=== PATIENT | female | born 1980 | race Caucasian/White ===

== ENCOUNTER 2018-03-27 22:20 | Inpatient (IN) ==
[2018-03-27] MEDS ORDERED: LORazepam 1 MG Tablet PO ONE (23:02)
[2018-03-27] MEDS ORDERED: levETIRAcetam 1000mg/100mL Inj 100 ML IV.SIG ONE (23:19)
--- NOTE | 2018-03-27 23:24 | ED ---
HPI General Chief complaint: Seizure Stated complaint: poss seizure/evac Time Seen by Provider: 03/27/18 22:31 Source: patient, old records reviewed and other (Staff) Mode of arrival: EMS History of Present Illness HPI narrative: Is a 37-year-old woman with cerebral palsy and history of seizures presents with recurrent seizures. She has had now total of 7 seizures today. By report she has not had a seizure in several years. Stopped her medications at the direction of Dr. Jennings, her neurologist, several months ago. Seen in the emergency department earlier today she had extensive workup including labs, imaging, CT head. She was restarted on her palms medications and was given a follow-up with Dr. Jennings in the next couple days. At home tonight, had multiple recurrent seizures including a grand mal seizure in several partial seizures. Socially, patient also little bit preoccupied with her third roommate, and is currently staying with the staff member employed through an agency hired by her family. Related Data Home Medications Medication Instructions Recorded Confirmed albuterol sulfate [ProAir HFA] 2 puff INHALATION Q4-6H PRN 03/27/18 03/27/18 lorazepam 0.5 mg PO TID 03/27/18 03/27/18 norgestimate-ethinyl estradiol 1 tab PO DAILY 03/27/18 03/27/18 [Tri-Sprintec (28)] omeprazole 40 mg PO DAILY 03/27/18 03/27/18 sertraline 50 mg PO TID 03/27/18 03/27/18 Previous Rx's Medication Instructions Recorded lamotrigine 25 mg PO BID 14 Days #28 tab 03/27/18 topiramate [Topamax] 100 mg PO BID 14 Days #28 tab 03/27/18 Allergies Allergy/AdvReac Type Severity Reaction Status Date / Time latex Allergy Severe Rash Verified 03/27/18 11:17 peanut Allergy Intermediate Hives Verified 03/27/18 11:17 Review of Systems ROS: all other systems reviewed are negative [facility] Medical History Medical History H/O wisdom tooth extraction (Acute) Seizure (Acute) Depression (Acute) Ulcerative colitis (Acute) Cerebral palsy (Acute) Surgical History Surgical History H/O tubal ligation (Acute) Social History Social History Substance History: No History of Abuse Second Hand Smoke Exposure: No Smoking Status: Never smoker How Often Do You Have a Drink Containing Alcohol: Never Immunization History Tetanus Immunization: Unsure Hx Influenza Vaccine This Season: No Exam Narrative Exam Narrative: GENERAL: 37-year-old woman, awake alert, no acute distress. SKIN: Focused skin assessment warm/dry. HEAD: Atraumatic. Normocephalic. EYES: Pupils equal and round. No scleral icterus. No injection or drainage. ENT: Somewhat dysmorphic facies with microphthalmos, some spontaneous nystagmus. NECK: Trachea midline. No JVD. CARDIOVASCULAR: Regular rate and rhythm. No murmur appreciated. RESPIRATORY: No accessory muscle use. Clear to auscultation. Breath sounds equal bilaterally. GASTROINTESTINAL: Abdomen soft, non-tender, nondistended. Hepatic and splenic margins not palpable. MUSCULOSKELETAL: No obvious deformities. No clubbing. No cyanosis. No edema. NEUROLOGICAL: Awake and alert. No obvious cranial nerve deficits. Moves all 4 extremities. Speech is normal without dysarthria however she has stuttering bit of thought blocking. Course Initial Documented Vital Signs Temperature 98.9 F 03/27/18 22:35 Pulse Rate 62 03/27/18 22:35 Respiratory Rate 18 03/27/18 22:35 Blood Pressure 135/61 03/27/18 22:35 Pulse Oximetry 99 03/27/18 22:35 Last Documented Vital Signs Temperature 98.9 F 03/27/18 22:35 Pulse Rate 62 03/27/18 22:35 Respiratory Rate 18 03/27/18 22:35 Blood Pressure 135/61 03/27/18 22:35 Pulse Oximetry 99 03/27/18 22:35 Medical Decision Making MDM Narrative Medical decision making narrative: Is a 37-year-old woman presents to the emergency department with recurrent seizures, now 7 total today, 2 generalized, 5 partial, clear change in her seizure frequency of none for the past several years. She was started on her home medications including Topamax and lamictal Lamictal earlier today. She takes Ativan regularly. We will give her IV [place] , plan on admission for neurology consultation. Spoke with Dr. Le, who will admit patient. Medical Screen Exam Complete: Yes Emergency Medical Condition: Yes Discharge Plan Discharge Disposition Patient Disposition: 30 Still Patient Physicians Team ED Provider: Alfredo Peterson Primary Care Provider: Jean Pierre Monroe Rxs /Orders / Referrals /Forms Prescriptions: No Action omeprazole 40 mg Capsule,Delayed Release(Dr/Ec) 40 mg PO DAILY RF: 0 lorazepam 0.5 mg Tablet 0.5 mg PO TID RF: 0 norgestimate-ethinyl estradiol [Tri-Sprintec (28)] 0.18/0.215/0.25 mg-35 mcg ( 28) Tablet 1 tab PO DAILY RF: 0 albuterol sulfate [ProAir HFA] 90 mcg/actuation Hfa Aerosol Inhaler 2 puff INHALATION Q4-6H PRN (Reason: Shortness Of Breath) RF: 0 sertraline 50 mg Tablet 50 mg PO TID RF: 0 lamotrigine 25 mg tablet 25 mg PO BID 14 Days Qty: 28 RF: 0 topiramate [Topamax] 100 mg tablet 100 mg PO BID 14 Days Qty: 28 RF: 0 Status ED Status: Ready for Discharge
[2018-03-28] MEDS ORDERED: Acetaminophen 325 MG Tablet PO PRN (01:14)
[2018-03-28] MEDS ORDERED: Bisacodyl 10 MG Supp RECTAL PRN (01:14)
--- NOTE | 2018-03-28 01:22 | P.HP ---
History of Present Illness Service: [facility] Primary Care Physician: Jean Pierre Monroe MD History of Present Illness: 37-year-old female with past medical history significant for cerebral palsy, seizure disorder and ulcerative colitis presents the emergency department for evaluation of multiple witnessed seizures. The patient reports that her neurologist, Dr. Jennings, took her off her seizure medication approximately 1 month ago. She has been seizure-free until yesterday when she had a witnessed seizure and was brought into the emergency department for evaluation. She was discharged at home had 1 generalized clonic tonic into partial seizures that were witnessed by her caregiver. The patient denies any chest pain or shortness of breath. No abdominal pain. No nausea/vomiting/diarrhea. No recent illnesses. No fever/chills. No lateralizing signs/symptoms. No headaches or visual changes. Review of Systems All other systems reviewed negative except as stated in HPI [facility] - History History Provided By: Patient - Medical History Medical History: Medical History (Last Reviewed 03/27/18 @ 23:22 by Alfredo Peterson MD) H/O wisdom tooth extraction (Acute) Seizure (Acute) Depression (Acute) Ulcerative colitis (Acute) Cerebral palsy - Surgical History Surgical History: Surgical History (Last Reviewed 03/27/18 @ 23:22 by Alfredo Peterson MD) H/O tubal ligation (Acute) - Family History Family History: Family History (Last Updated 03/28/18 @ 01:19 by Tita Le MD) Other Family history normal - Tobacco History Second Hand Smoke Exposure: No Tobacco Use In Past 30 Days: No Smoking Status: Never smoker - Alcohol History How Often Do You Have a Drink Containing Alcohol: Never - Substance Use History Substance History: No History of Abuse - Immunization History Tetanus Immunization: Unsure Hx Influenza Vaccine This Season: No Medications and Allergies Allergies Allergy/AdvReac Type Severity Reaction Status Date / Time latex Allergy Severe Rash Verified 03/27/18 11:17 peanut Allergy Intermediate Hives Verified 03/27/18 11:17 Home Medications Medication Instructions Recorded Confirmed Type albuterol sulfate [ProAir HFA] 2 puff INHALATION Q4-6H PRN 03/27/18 03/27/18 History lorazepam 0.5 mg PO TID 03/27/18 03/27/18 History norgestimate-ethinyl estradiol 1 tab PO DAILY 03/27/18 03/27/18 History [Tri-Sprintec (28)] omeprazole 40 mg PO DAILY 03/27/18 03/27/18 History sertraline 50 mg PO TID 03/27/18 03/27/18 History Exam Vital signs: Vital Signs 03/27/18 22:35 Temperature 98.9 F Pulse Rate 62 Respiratory Rate 18 Blood Pressure 135/61 Pulse Oximetry 99 Intake & Output 03/27/18 03/27/18 03/28/18 06:59 18:59 06:59 Weight 65 kg Narrative: Gen.: No acute distress Head: Normocephalic. Atraumatic. EENT: Pupils equal round and reactive to light. Nose without drainage. Airway intact. Throat without injection. Cardiovascular: Regular rate and rhythm. No murmurs, rubs or gallops. Respiratory: Lungs clear to auscultation bilaterally. No wheezes or rhonchi. Abdomen: Soft, nontender, nondistended. No peritoneal signs. Musculoskeletal: No gross deformities. No edema. Skin: No obvious rashes or erythema. Neuro: Sensory and motor grossly intact. Cranial nerves II through XII grossly intact. Caprini VTE Risk Assessment Caprini VTE Risk Assessment: No/Low Risk (score <= 1) Caprini Risk Assessment Model: Point Value = 1 Point Value = 2 Point Value = 3 Point Value = 5 Age 41-60 Minor surgery BMI > 25 kg/m2 Swollen legs Varicose veins or History of unexplained or recurrent spontaneous Oral contraceptives or hormone replacement Sepsis (< 1 month) Serious lung disease, including pneumonia (< 1 month) Abnormal pulmonary function Acute myocardial infarction Congestive heart failure (< 1 month) History of inflammatory bowel disease Medical patient at bed rest Age 61-74 Arthroscopic surgery Major open surgery (> 45 min) Laparoscopic surgery (> 45 min) Malignancy Confined to bed (> 72 hours) Immobilizing plaster cast Central venous access Age >= 75 History of VTE Family history of VTE Factor V Leiden Prothrombin [id number] Lupus anticoagulant Anticardiolipin antibodies Elevated serum homocysteine Heparin-induced thrombocytopenia Other congenital or acquired thrombophilia Stroke (< 1 month) Elective arthroplasty Hip, pelvis, or leg fracture Acute spinal cord injury (< 1 month) Prophylaxis Regimen: Total Risk Factor Score Risk Level Prophylaxis Regimen 0-1 Low Early ambulation 2 Moderate Order ONE of the following: *Sequential Compression Device (SCD) *Heparin 5000 units SQ BID 3-4 Higher Order ONE of the following medications: *Heparin 5000 units SQ TID *Enoxaparin/Lovenox 40 mg SQ daily (WT < 150 kg, CrCl > 30 mL/min) *Enoxaparin/Lovenox 30 mg SQ daily (WT < 150 kg, CrCl > 10-29 mL/min) *Enoxaparin/Lovenox 30 mg SQ BID (WT < 150 kg, CrCl > 30 mL/min) AND/OR *Sequential Compression Device (SCD) 5 or more Highest Order ONE of the following medications: *Heparin 5000 units SQ TID (Preferred with Epidurals) *Enoxaparin/Lovenox 40 mg SQ daily (WT < 150 kg, CrCl > 30 mL/min) *Enoxaparin/Lovenox 30 mg SQ daily (WT < 150 kg, CrCl > 10-29 mL/min) *Enoxaparin/Lovenox 30 mg SQ BID (WT < 150 kg, CrCl > 30 mL/min) AND *Sequential Compression Device (SCD) Assessment and Plan - Plan Assessment/plan: 1. Seizure Patient with history of seizure disorder Had been seizure-free for many years Was taken off her seizure medication by her neurologist approximately 1 month ago Had multiple witnessed seizures yesterday Loaded with Keppra Continue p.o. Keppra EEG pending Neurology consulted, appreciate recommendations Seizure precautions Ativan as needed 2. Depression/GERD Continue home medications FEN Regular diet Electrolytes: Monitor and replete as needed
[2018-03-28] MEDS ORDERED: TRI SPRINTEC PO SCH (09:00)
[2018-03-28] MEDS ORDERED: lamoTRIgine 25 MG TABLET PO SCH (09:00)
[2018-03-28] MEDS: Senna/Docusate Sodium 8.6/50 MG Tablet PO SCH ×2 (09:36→21:03)
[2018-03-28] MEDS: levETIRAcetam 500 MG Tablet PO SCH ×2 (09:36→21:03)
[2018-03-28] MEDS: Sertraline 100 MG Tablet PO SCH ×3 (09:36→18:08)
--- NOTE | 2018-03-28 14:03 | P.CONNEU ---
History of Present Illness Service: Neurology Primary Care Provider: Jean Pierre Monroe MD Chief Complaint: Seizure History of Present Illness: 37-year-old female history of cerebral palsy, mild static encephalopathy and seizures comes in for apparent breakthrough seizure. Patient states she was taken out of her seizure medication by her outpatient neurologist. She was seen by outpatient neurology for several years and it was one-point apparently followed up at by pediatric neurologist. She states she takes Topamax and Lamictal at home. She admits to moderate amount of stress related to other residents in her home environment. She denies any headache any weakness states she is a cane or walker at baseline and has chronic right-sided weakness. In addition states she developed seizure at the age of 4. He is requesting go home. Review of Systems All other systems reviewed negative except as stated in HPI [facility] - History History Provided By: Patient - Medical History Medical History: Medical History (Last Reviewed 03/27/18 @ 23:22 by Alfredo Peterson MD) H/O wisdom tooth extraction (Acute) Seizure (Acute) Depression (Acute) Ulcerative colitis (Acute) Cerebral palsy - Surgical History Surgical History: Surgical History (Last Reviewed 03/27/18 @ 23:22 by Alfredo Peterson MD) H/O tubal ligation (Acute) - Family History Family History: Family History (Last Updated 03/28/18 @ 01:19 by Tita Le MD) Other Family history normal - Tobacco History Second Hand Smoke Exposure: No Tobacco Use In Past 30 Days: No Smoking Status: Never smoker - Alcohol History How Often Do You Have a Drink Containing Alcohol: Never - Substance Use History Substance History: No History of Abuse - Immunization History Tetanus Immunization: Unsure Hx Influenza Vaccine This Season: No Medications and Allergies Active Medications: Active Medications Acetaminophen (Tylenol) 650 mg PO Q4H PRN PRN Reason: TEMP>101F, PAIN 1-10, HEADACHE Al Hydroxide/Mg Hydroxide (Milk Of Magnesia Liq) 30 ml PO Q12H PRN PRN Reason: Mild Constipation Bisacodyl (Dulcolax Supp) 10 mg RECTAL DAILY PRN PRN Reason: SEVERE CONSITIPATION Lactulose (Lactulose Liq) 30 ml PO DAILY PRN PRN Reason: SEVERE CONSITIPATION Lamotrigine (Lamictal) 25 mg PO BID [facility] Last Admin: 03/28/18 09:36 Dose: 25 mg Levetiracetam (Keppra) 500 mg PO BID [facility] Last Admin: 03/28/18 09:36 Dose: 500 mg Lorazepam (Ativan Inj) 1 mg IV.PUSH Q15M PRN PRN Reason: seizure Miscellaneous (Pill Splitter) 1 each OTHER UNSCH [facility] Ondansetron HCl (Zofran Inj) 4 mg IV.PUSH Q6H PRN PRN Reason: NAUSEA OR VOMITING Pantoprazole Sodium (Protonix) 40 mg PO DAILY [facility] Last Admin: 03/28/18 09:36 Dose: 40 mg Patient Own Med-Tri- (Sprintec(28)) 1 each PO DAILY [facility] Senna/Docusate Sodium (Alison-Colace) 1 tab PO BID [facility] Last Admin: 03/28/18 09:36 Dose: 1 tab Sennosides (Senokot) 17.2 mg PO Q12H PRN PRN Reason: Moderate Constipation Sertraline HCl (Zoloft) 50 mg PO TID [facility] Last Admin: 03/28/18 09:36 Dose: 50 mg Allergies Allergy/AdvReac Type Severity Reaction Status Date / Time latex Allergy Severe Rash Verified 03/27/18 11:17 peanut Allergy Intermediate Hives Verified 03/27/18 11:17 Home Medications Medication Instructions Recorded Confirmed Type albuterol sulfate [ProAir HFA] 2 puff INHALATION Q4-6H PRN 03/27/18 03/27/18 History lorazepam 0.5 mg PO TID 03/27/18 03/27/18 History norgestimate-ethinyl estradiol 1 tab PO DAILY 03/27/18 03/27/18 History [Tri-Sprintec (28)] omeprazole 40 mg PO DAILY 03/27/18 03/27/18 History sertraline 50 mg PO TID 03/27/18 03/27/18 History Exam Vital signs: Vital Signs 03/27/18 22:35 03/28/18 04:00 03/28/18 04:07 Temperature 98.9 F 97.6 F Pulse Rate 62 54 L Respiratory Rate 18 17 15 Blood Pressure 135/61 95/52 L Pulse Oximetry 99 99 03/28/18 04:46 03/28/18 07:31 03/28/18 12:00 Temperature 97.8 F 97.5 F L Pulse Rate 60 82 Respiratory Rate 15 14 12 Blood Pressure 110/53 L 112/63 Pulse Oximetry 100 99 Intake & Output 03/27/18 03/28/18 03/28/18 18:59 06:59 18:59 Intake Total 100 / 100 Balance 100 / 100 Weight 65 kg Intake: IV 100 / 100 Keppra 1000 mg/100 mL Premix 100 / 100 100 ML @ 400 mls/hr IV.SIG ONCE ONE Rx#:[id number] Narrative: Gen.: No acute distress Head: Normocephalic. Atraumatic. EENT: Pupils equal round and reactive to light. Nose without drainage. Cardiovascular: Regular rate and rhythm. No murmurs, rubs or gallops. Respiratory: Lungs clear to auscultation bilaterally. No wheezes or rhonchi. Abdomen: Soft, nontender, nondistended. No peritoneal signs. Musculoskeletal: No gross deformities. No edema. Skin: No obvious rashes or erythema. Neuro: Awake alert oriented 2-3, quite anxious slightly irritable, horizontal nystagmus on primary and and gaze visual so grossly full no facial asymmetry reduced fine finger movements both upper extremities able to raise all 4 limbs with mild right-sided lower extremity paresis mild brisk reflex in lower extremity gait not assessed secondary fall risk - Constitutional no acute distress - Routine HEENT Exam Head: Present: normocephalic Eye: Present: EOMI Review/Management - Diagnosis (1) Situational anxiety Code(s): F41.8 - Other specified anxiety disorders Status: Acute Current Visit: No (2) Mood disorder Code(s): F39 - Unspecified mood [affective] disorder Status: Acute Current Visit: No (3) Intellectual disability Code(s): F79 - Unspecified intellectual disabilities Status: Acute Current Visit: No (4) Seizure Code(s): R56.9 - Unspecified convulsions Status: Acute Current Visit: No (5) Depression Code(s): F32.9 - Major depressive disorder, single episode, unspecified Status : Acute Current Visit: No - Review/Management Plan: Unclear if she actually had breakthrough seizure versus nonepileptic event related to stressors from other residents in her living environment She also states that she stopped her seizure medication and thus breakthrough seizure is a possibility Recommendations Resume home seizure medications EEG Discharge planning with outpatient follow-up with her neurologist No driving, fall precautions
[2018-03-28] MEDS: lamoTRIgine 100 MG Tablet PO SCH (14:52)
[2018-03-28] MEDS: Topiramate 100 MG Tablet PO SCH (14:52)
--- NOTE | 2018-03-28 16:18 | P.PN ---
Subjective Interval history: follow up for seizures: Per nursing report, patient was noted staring and unresponsive, lasted only a few seconds. Patient is awake alert oriented 3. Anxious, states that she is having problems with her roommate. Patient with history of intellectual disability. Anxious to go home today. Endorses that her medications were stopped about a month ago by her doctor, she follows up with Dr. Jennings as outpatient. Physical Exam Vital signs: Vital Signs 03/27/18 22:35 03/28/18 04:00 03/28/18 04:07 Temperature 98.9 F 97.6 F Pulse Rate 62 54 L Respiratory Rate 18 17 15 Blood Pressure 135/61 95/52 L Pulse Oximetry 99 99 03/28/18 04:46 03/28/18 07:31 03/28/18 12:00 Temperature 97.8 F 97.5 F L Pulse Rate 60 82 Respiratory Rate 15 14 12 Blood Pressure 110/53 L 112/63 Pulse Oximetry 100 99 Intake & Output 03/27/18 03/28/18 03/28/18 18:59 06:59 18:59 Intake Total 100 / 100 Balance 100 / 100 Weight 65 kg Intake: IV 100 / 100 Keppra 1000 mg/100 mL Premix 100 / 100 100 ML @ 400 mls/hr IV.SIG ONCE ONE Rx#:[id number] Narrative: GENERAL: Well-nourished, well-developed patient in no apparent distress. SKIN: Warm and dry. HEAD: Atraumatic. Normocephalic. EYES: Pupils 4 mm dilated. No scleral icterus. No injection or drainage. ENT: No nasal bleeding or discharge. Mucous membranes pink and moist. NECK: Trachea midline. No JVD. CARDIOVASCULAR: Regular rate and rhythm. RESPIRATORY: No accessory muscle use. Clear to auscultation. Breath sounds equal bilaterally. GASTROINTESTINAL: Abdomen soft, non-tender, nondistended. Hepatic and splenic margins not palpable. MUSCULOSKELETAL: Extremities without clubbing, cyanosis, or edema. No obvious deformities. NEUROLOGICAL: Awake, alert and oriented 3. No focal deficits. PSYCHIATRIC: Anxious, wants to go home. Assessment and Plan - Plan Assessment/plan 37-year-old female with past medical history significant for cerebral palsy, seizure disorder and ulcerative colitis presents the emergency department for evaluation of multiple witnessed seizures. The patient reports that her neurologist, Dr. Jenninsg, took her off her seizure medication approximately 1 month ago. She has been seizure-free until yesterday when she had a witnessed seizure and was brought into the emergency department for evaluation. She was discharged at home had 1 generalized clonic tonic into partial seizures that were witnessed by her caregiver. Seizure Patient with history of seizure disorder Had been seizure-free for many years Was taken off her seizure medication by her neurologist approximately 1 month ago Had multiple witnessed seizures yesterday Was on Topamax and lamictal. -Loaded with Keppra -Continue p.o. Keppra and Lamictal. -EEG pending -Neurology consulted, appreciate recommendations -Seizure precautions -Ativan as needed Depression/GERD pt. very anxious about situation with roommate. -Continue home medications Patient wanted to sign AGAINST MEDICAL ADVICE, I spoke to patient's caregiver Julee. Patient is competent to give consent. She has history of intellectual disability. Julee was able to speak to patient and provided reassurance. Patient agreeable with staying in the hospital. Plan to discharge patient in the morning after work up completed and no more seizures.
--- NOTE | 2018-03-28 19:53 | MG ---
cc: Maritza Cohen MD EEG NUMBER: [id number] REFERRING PHYSICIAN: Tita Le MD INDICATION: In room F61, awake, drowsy, asleep with photic done. Poor hyperventilatory effort. EEG 02/22/2014 showed asymmetry some sharps over the left posterior parietal region. CT shows stability. Apparently a 37-year-old female with recurrent seizures, generalized tonic partial. Apparently had a seizure prior to hooking up to the EEG. History of CP epilepsy. On Keppra, Protonix. DESCRIPTION OF RECORD: Patient has an overall background of 8-1/2 Hz 20-60 microvolts. Overall, symmetrical background. Some artifact seen. EKG is artifactual; cannot be interpreted. No epileptic activity seen. Photic stimulation did elicit a posterior driving response. Hyperventilation did not change the background, remained symmetrical. IMPRESSION: Overall, normal appearing study without any epileptiform features. Clinical correlation. Maritza Cohen MD DF/lucas , 07:35 PM , 07:41 PM
[2018-03-29] MEDS: lamoTRIgine 100 MG Tablet PO SCH ×2 (00:04→10:26)
[2018-03-29] MEDS: Topiramate 100 MG Tablet PO SCH ×2 (00:04→10:27)
[2018-03-29 07:30] VITALS: RESP 18; O2SAT 100
[2018-03-29] MEDS: Senna/Docusate Sodium 8.6/50 MG Tablet PO SCH (09:18)
--- NOTE | 2018-03-29 09:41 | P.PN ---
Subjective Interval history: follow up for seizures:no seizures overnight, pt. forgetful, awake, oriented x 3. Pleasant, not crying today. No fever, no cp, no sob. Wants to go home. Asking for breakfast. Sitter at [facility]. Physical Exam Vital signs: Vital Signs 03/28/18 12:00 03/28/18 16:00 03/28/18 20:00 Temperature 97.5 F L 97.4 F L 97.7 F Pulse Rate 82 60 71 Respiratory Rate 12 12 16 Blood Pressure 112/63 131/63 110/67 Pulse Oximetry 99 98 100 03/28/18 23:47 03/29/18 04:00 03/29/18 07:29 Temperature 98.0 F 97.9 F 98.3 F Pulse Rate 74 62 61 Respiratory Rate 16 16 18 Blood Pressure 110/62 105/54 L 99/53 L Pulse Oximetry 99 98 100 Intake & Output 03/28/18 03/29/18 03/29/18 18:59 06:59 18:59 Intake Total 0 / 0 Balance 0 / 0 Weight 64.864 kg Intake: Oral 0 / 0 Other: # Voids 2 1 Date of Last Bowel Movement 03/28/18 # Bowel Movements 1 4 Narrative: GENERAL: Well-nourished, well-developed patient in no apparent distress. SKIN: Warm and dry. HEAD: Atraumatic. Normocephalic. EYES: Pupils 4 mm dilated. No scleral icterus. No injection or drainage. ENT: No nasal bleeding or discharge. Mucous membranes pink and moist. NECK: Trachea midline. No JVD. CARDIOVASCULAR: Regular rate and rhythm. RESPIRATORY: No accessory muscle use. Clear to auscultation. Breath sounds equal bilaterally. GASTROINTESTINAL: Abdomen soft, non-tender, nondistended. Hepatic and splenic margins not palpable. MUSCULOSKELETAL: Extremities without clubbing, cyanosis, or edema. No obvious deformities. NEUROLOGICAL: Awake, alert and oriented 3. No focal deficits. PSYCHIATRIC: pleasant, cooperative today. Assessment and Plan - Assessment (1) Seizure Code(s): R56.9 - Unspecified convulsions Status: Acute (2) Situational anxiety Code(s): F41.8 - Other specified anxiety disorders Status: Acute (3) Mood disorder Code(s): F39 - Unspecified mood [affective] disorder Status: Acute (4) Intellectual disability Code(s): F79 - Unspecified intellectual disabilities Status: Chronic (5) Depression Code(s): F32.9 - Major depressive disorder, single episode, unspecified Status : Chronic - Plan Assessment/plan 37-year-old female with past medical history significant for cerebral palsy, seizure disorder and ulcerative colitis presents the emergency department for evaluation of multiple witnessed seizures. The patient reports that her neurologist, Dr. Jennings, took her off her seizure medication approximately 1 month ago. She has been seizure-free until yesterday when she had a witnessed seizure and was brought into the emergency department for evaluation. She was discharged at home had 1 generalized clonic tonic into partial seizures that were witnessed by her caregiver. Seizure Patient with history of seizure disorder Had been seizure-free for many years Was taken off her seizure medication by her neurologist approximately 1 month ago Had multiple witnessed seizures yesterday Was on Topamax and lamictal. -Loaded with Keppra -Continue p.o. Keppra and Lamictal, on Topamax as well. -EEG normal -Neurology consulted, appreciate recommendations. Recommends to continue home meds. Poss breakthrough seizures, unclear if she stopped taking or poss brought on by stressors. -Seizure precautions -Ativan as needed -stable for dc Depression/GERD pt. very anxious about situation with roommate. -Continue home medications Spoke to caregiver Julee, refills given on Topamax and Lamictal. Continue with Keppra as well needs to f/u with Dr. Jennings next week Stable for discharge (5) Depression Qualifiers: Depression Type: unspecified Qualified Code(s): F32.9 - Major depressive disorder, single episode, unspecified
[2018-03-29] MEDS: levETIRAcetam 500 MG Tablet PO SCH (10:27)
[2018-03-29] MEDS: Sertraline 100 MG Tablet PO SCH (10:27)
[2018-03-29 11:35] VITALS: BP 112/71; PULSE 72; TEMP 97.6
== END 2018-03-29 12:06 | disposition home or self-care (01) ==
LOC: NEPC 22:20 → NEDA 22:20 → NEPFCDU 03-28 04:20
PROVIDERS: ADMIT Hospitalist; ATTEND Hospitalist